=== PATIENT | female | born 1985 | race Caucasian/White ===

== ENCOUNTER → 2023-05-30 12:18 | Outpatient (CLI) | payer BC, SELFPAY ==
--- NOTE | ~2023-05-30 | MM_ITS ---
EXAMINATION: MM screening leila BI w tamera HISTORY: Screening mammogram TECHNIQUE: Craniocaudal and mediolateral oblique 3-D tomosynthesis images were obtained and synthetic 2-D images were generated. CAD analysis was submitted and interpreted. COMPARISON: No prior mammogram is available for comparison at this institution. BREAST PARENCHYMAL COMPOSITION: There are scattered areas of fibroglandular density. FINDINGS: There is an approximately 9 x 9.5 mm mass with halo sign in the very posterior upper outer right breast. Diagnostic right mammogram and right breast ultrasound are recommended. Small incompletely circumscribed masses are suggested on the left. Left diagnostic mammogram and ult rasound examination are recommended. IMPRESSION: 1. Bilateral breast masses 2. Diagnostic bilateral mammogram and bilateral breast ultrasound examination are recommended. BI-RADS Category 0: Incomplete: Needs additional imaging evaluation. Reviewed, dictated and finalized at location A. IMPRESSION: 1. Bilateral breast masses 2. Diagnostic bilateral mammogram and bilateral breast ultrasound examination a re recommended. BI-RADS Category 0: Incomplete: Needs additional imaging evaluation.
== END ==
PROVIDERS: PCP Nurse Practitioner; Visit Provider Nurse Practitioner
DX: Z12.31 Encounter for screening mammogram for malignant neoplasm of breast (principal); R92.8 Other abnormal and inconclusive findings on diagnostic imaging of breast
CPT/HCPCS: 77063; 77067

== ENCOUNTER → 2023-07-03 09:12 | Outpatient (CLI) | payer BC, SELFPAY ==
--- NOTE | ~2023-07-03 | MMUS_ITS ---
EXAMINATION: MM diagnostic leila BI w tamera, US breast BI limited HISTORY: Follow-up breast masses TECHNIQUE: Additional 3-D tomosynthesis images of the breasts were performed and synthetic 2-D images were generated. CAD analysis was submitted and interpreted. High resolution Limited left breast ultr asound was performed. COMPARISON: 05/30/2023 BREAST PARENCHYMAL COMPOSITION: Breast composed of scattered areas of fibroglandular density FINDINGS: MAMMOGRAPHIC FINDINGS: Right breast: There is a mass in the upper aspect of the right breast on medial lateral and MLO view, posteriorly. Left breast: There are scattered heterogeneous fibroglandular densities throughout the left breast wi thout discrete mass or suspicious calcifications. ULTRASOUND: Limited right breast ultrasound: At 10:00, 9 cm from the nipple, there is an oval hypoechoic 9 mm mas s with parallel orientation, internal echogenic foci, no posterior features and no internal vasculari ty. Limited left breast ultrasound: At 12:00, 4 cm from the nipple there is a 4 mm cyst. IMPRESSION: 1. Oval hypoechoic 9 mm right breast mass at 10:00, 9 cm from the nipple. This likely corresponds to the mammographic finding. 2. Ultrasound-guided right breast biopsy recommended. BI-RADS category 4, suspicious findings. Reviewed, dictated and finalized at location A. IMPRESSION: 1. Oval hypoechoic 9 mm right breast mass at 10:00, 9 cm from the nipple. This likely corresponds to the mammographic finding. 2. Ultrasound-guided right breast biopsy recommended. BI-RADS category 4, suspicious findings.
== END ==
PROVIDERS: PCP Obstetrics & Gynecology Gynecology; Visit Provider Obstetrics & Gynecology Gynecology
DX: R92.8 Other abnormal and inconclusive findings on diagnostic imaging of breast (principal)
CPT/HCPCS: 76642; 77062; 77066; G0279

== ENCOUNTER 2023-07-30 09:51 | Outpatient (CLI) | payer BC, SELFPAY ==
--- NOTE | ~2023-07-30 | MMUS_ITS ---
EXAMINATION: US breast biopsy RT w image, MM post biopsy invasive RT DATE: 07/30/2023 11:48 (accession [id number]), 07/30/2023 11:53 (accession [id number]) INDICATION: Indeterminate mass in the upper outer quadrant of the right breast. Ultrasound-guided cor e biopsy is requested to evaluate for malignancy. TECHNIQUE AND FINDINGS: The risks and potential benefits of the procedure were discussed with the patient including bleeding and infection. A time out was performed. The skin of the right breast was prepared and draped in usua l sterile fashion. 1% lidocaine was used for superficial anesthesia. 1% lidocaine with epinephrine wa s used for deep anesthesia. Initially, an 18-gauge spinal needle was advanced towards the mass to assess for possible cyst. The m ass did not aspirate. Subsequently, a vacuum-assisted biopsy needle was advanced through to the outer edge of the region of interest from an inferolateral approach utilizing sonographic guidance. A tota l of four tissue core samples were obtained through the lesion. A tissue marker clip was then placed at the biopsy site. Hemostasis was achieved. A sterile bandage was applied. The patient tolerated procedure well and there was no evidence of immediate complication. The patient was given verbal instructions to return to the Emergency Department in the event of severe breast pa in or rapid breast enlargement. A two view right breast mammogram was obtained to document tissue mar ker clip placement. IMPRESSION: 1. Successful ultrasound-guided vacuum-assisted biopsy of right breast mass with tissue marker placem ent. Reviewed, dictated and finalized at location A. S SERVICE ASSISTANT IMPRESSION: 1. Successful ultrasound-guided vacuum-assisted biopsy of right breast mass wit h tissue marker placement.
== END 2023-07-30 09:52 | disposition home or self-care (01) ==
PROVIDERS: PCP Obstetrics & Gynecology Gynecology; Visit Provider Physician Assistant Surgical
DX: D24.1 Benign neoplasm of right breast (principal); R92.8 Other abnormal and inconclusive findings on diagnostic imaging of breast
CPT/HCPCS: 19083; 88305; A4648

== ENCOUNTER 2024-02-13 08:08 | Outpatient (CLI) | payer BC, SELFPAY ==
--- NOTE | ~2024-02-13 | US_ITS ---
US breast RT limited 02/13/2024 08:32 Indication: Follow-up right breast mass Procedure: High-resolution Limited ultrasound of the right breast Comparison: 07/30/2023 Findings: At 10:00, 9 cm from the nipple there is a 7 mm intramammary lymph node. No suspicious [place] s to suggest malignancy. Impression: 1: Benign intramammary lymph node of the right breast at 10:00, 9 cm from the nipple. Correlation wit h diagnostic mammogram recommended to assess for interval change compared with prior mammograms dated 05/30/2023 and 07/03/2023. BI-RADS CATEGORY 0 - INCOMPLETE STUDY, NEED ADDITIONAL IMAGING EVALUATION. Reviewed, dictated and finalized at location B. Impression: 1: Benign intramammary lymph node of the right breast at 10:00, 9 cm from the n ipple. Correlation with diagnostic mammogram recommended to assess for interval change compared with prior mammograms dated 05/30/2023 and 07/03/2023. BI-RADS CATEGORY 0 - INCOMPLETE STUDY, NEED ADDITIONAL IMAGING EVALUATION.
== END 2024-02-13 08:09 ==
LOC: MICIMG 08:09
PROVIDERS: PCP Surgery; Visit Provider Surgery
DX: N63.10 Unspecified lump in the right breast, unspecified quadrant (principal); R92.8 Other abnormal and inconclusive findings on diagnostic imaging of breast
CPT/HCPCS: 76642

== ENCOUNTER 2024-02-18 13:01 | Outpatient (CLI) | payer BC, SELFPAY ==
--- NOTE | ~2024-02-18 | MM_ITS ---
EXAMINATION: MM diagnostic leila RT w tamera HISTORY: History of previous benign right breast biopsy. TECHNIQUE: Additional 3-D tomosynthesis images of the right breast were performed and synthetic 2-D i mages were generated. CAD analysis was submitted and interpreted. COMPARISON: Comparison to multiple prior studies sequentially, with oldest reviewed study dated 05/30. BREAST PARENCHYMAL COMPOSITION: Not dense: There are scattered areas of fibroglandular density. FINDINGS: There are no suspicious masses, calcifications or architectural distortion in the right ab ast to suggest malignancy. IMPRESSION: 1. No mammographic evidence for malignancy in the right breast. 2. Routine yearly screening mammogram and regular clinical breast examination are recommended. BI-RADS Category 1: Negative Reviewed, dictated and finalized at location B. IMPRESSION: 1. No mammographic evidence for malignancy in the right breast. 2. Routine yearly screening mammogram and regular clinical breast examination a re recommended. BI-RADS Category 1: Negative
== END 2024-02-18 13:02 ==
LOC: MICIMG 13:01
PROVIDERS: PCP Surgery; Visit Provider Surgery
DX: R92.8 Other abnormal and inconclusive findings on diagnostic imaging of breast (principal); N63.10 Unspecified lump in the right breast, unspecified quadrant
CPT/HCPCS: 77061; 77065; G0279

== ENCOUNTER 2024-07-26 14:17 | Outpatient (CLI) | payer BC, SELFPAY ==
--- NOTE | ~2024-07-26 | MM_ITS ---
EXAMINATION: MM screening leila BI w tamera HISTORY: Screening mammogram TECHNIQUE: Craniocaudal and mediolateral oblique 3-D tomosynthesis images were obtained and synthetic 2-D images were generated. CAD analysis was submitted and interpreted. COMPARISON: 02/18/2024, 05/30/2023 BREAST PARENCHYMAL COMPOSITION:Not Dense. There are scattered areas of fibroglandular density. FINDINGS: Stable small benign mass in the lower, outer left breast. No suspicious mass, calcification , or architectural distortion are identified in either breast to suggest malignancy. There has been n o suspicious interval change. IMPRESSION: No mammographic evidence of malignancy. Recommend routine screening mammography in one year. BI-RADS Category 2: Benign finding(s). Reviewed, dictated and finalized at location . ING OPERATIONS INSPECTOR
== END 2024-07-26 14:18 | disposition home or self-care (01) ==
PROVIDERS: PCP Internal Medicine; Visit Provider Nurse Practitioner
DX: Z12.31 Encounter for screening mammogram for malignant neoplasm of breast (principal)
CPT/HCPCS: 77063; 77067